=== PATIENT | female | born 1935 | race Caucasian/White ===

== ENCOUNTER 2018-02-14 11:36 | Emergency (ER) | payer MEDICARE, OTHER ==
[~2018-02-14] VITALS: Ht 152.4 cm; Wt 81.6 kg
--- NOTE | 2018-02-14 11:54 | NUR ---
ASKED PT REGARDING MEDS, PT STATED SHE DID NOT RECALL.
--- NOTE | 2018-02-14 12:05 | NUR ---
DR. BLACK AT BEDSIDE.
--- NOTE | 2018-02-14 12:55 | NUR ---
D/C INSTRUCTION PROVIDED BY DR. BLACK. PT WALKED IN STEADY GAIT ACCOMPANED BY FAMILY MEMBER.
== END 2018-02-14 12:59 | disposition home or self-care (01) ==
LOC: ER 11:36
DX: Z45.2 Encounter for adjustment and management of vascular access device (principal); I50.9 Heart failure, unspecified; E11.9 Type 2 diabetes mellitus without complications; E78.5 Hyperlipidemia, unspecified; Z88.5 Allergy status to narcotic agent
CPT/HCPCS: 99281; A4663; J7030

== ENCOUNTER 2021-03-04 12:55 | Outpatient (CLI) | payer MEDICARE, OTHER | END 2021-03-04 23:59 | disposition home or self-care (01) | LOC: US 12:55 | PROVIDERS: ATTEND Internal Medicine Hematology & Oncology | DX: I82.622 Acute embolism and thrombosis of deep veins of left upper extremity (principal) ==